=== PATIENT | female | born 1980 | race Caucasian/White ===

== ENCOUNTER 2018-11-27 19:53 | Emergency (ER) | payer SELFPAY ==
[2018-11-27] MEDS: SILVER SULFADIAZINE 1% 25 GM CR TOP (22:49)
[2018-11-27] MEDS: DIPHTH/TET/ACEL PERTUSS (ADULT) 0.5 ML VIAL IM* (22:49)
== END 2018-11-27 23:07 | disposition home or self-care (01) ==
LOC: FTE 19:53
DX: T22.211A Burn of second degree of right forearm, initial encounter (principal); X15.8XXA Contact with other hot household appliances, initial encounter; Y92.9 Unspecified place or not applicable; Z23 Encounter for immunization
CPT/HCPCS: 16000; 90471; 90715; 99283-25